=== PATIENT | female | born 1940 | race Two or more races ===

== ENCOUNTER 2017-03-12 09:11 | Inpatient (IN) | payer MEDICARE, MEDICAID ==
[~2017-03-12] VITALS: Ht 161.3 cm; Wt 77.7 kg
[2017-03-12 09:40] VITALS: BP 122/74
[2017-03-12] MEDS ORDERED: SIMV40TA3 PO (10:45)
[2017-03-12] MEDS ORDERED: POTA10CA PO (10:45)
[2017-03-12] MEDS ORDERED: LORA1TAB PO (10:45)
[2017-03-12] MEDS ORDERED: METO-93 PO (10:45)
[2017-03-12] MEDS ORDERED: DILT180C PO (10:45)
[2017-03-12] MEDS ORDERED: ANAS1TAB PO (10:45)
[2017-03-12] MEDS ORDERED: ASPI-650 PO (10:45)
[2017-03-12] MEDS ORDERED: TEMA30CA6 PO (10:45)
[2017-03-12] MEDS ORDERED: SODIUM CHLORIDE 0.9% 1,000 ML IV SCH ×2 (11:08→12:32)
[2017-03-12] MEDS ORDERED: TICAGRELOR 90 MG TABLET ONE (11:12)
[2017-03-12] MEDS ORDERED: FENTANYL PF 100 MCG/2ML ONE (11:12)
[2017-03-12] MEDS ORDERED: NITROGLYCERIN 5 MG/ML, 10ML ONE (11:12)
[2017-03-12] MEDS ORDERED: MIDAZOLAM 1 MG/ML, 5ML ONE (11:12)
[2017-03-12] MEDS ORDERED: VERAPAMIL 2.5 MG/ML, 2ML ONE (11:12)
[2017-03-12] MEDS ORDERED: BIVALIRUDIN 250 MG ONE (11:13)
[2017-03-12] MEDS ORDERED: HEPARIN 1,000 UNITS/ML, 10ML ONE (11:13)
[2017-03-12] MEDS ORDERED: LIDOCAINE 2%, 20ML ONE (11:13)
[2017-03-12] MEDS ORDERED: TEMAZEPAM 30 MG CAPSULE PO PRN (11:30)
[2017-03-12] MEDS: LORazepam 1MG TABLET PO SCH ×3 (11:30→20:50)
[2017-03-12] MEDS: ASPIRIN 325 MG TABLET EC PO SCH (11:30)
[2017-03-12 13:52] LABS: HEMATOCRIT 39.1 % (34.6-47.8); HEMOGLOBIN 13.2 g/dL (11.7-16.4); WHITE BLOOD COUNT 8.9 x10^3/uL (3.4-10)
[2017-03-12 14:02] LABS: ASPARTATE AMINO TRANSFERASE 27 U/L (15-37); BLOOD UREA NITROGEN 10 mg/dL (7-18)
[2017-03-12 14:13] VITALS: BP 110/71
[2017-03-12] MEDS: POTASSIUM CHLORIDE 10 MEQ TABLET.ER PO SCH (16:24)
[2017-03-12] MEDS: DILTIAZEM CD 180 MG CAP.ER.24H PO SCH (16:24)
[2017-03-12] MEDS: ANASTROZOLE 1 MG TABLET PO SCH (16:27)
[2017-03-12 19:33] VITALS: BP 150/80
[2017-03-12] MEDS ORDERED: SIMVASTATIN 40 MG TABLET PO SCH (21:00)
[2017-03-13 02:51] VITALS: BP 107/65
[2017-03-13] MEDS: LORazepam 1MG TABLET PO SCH ×2 (05:45→10:58)
[2017-03-13] MEDS ORDERED: METOPROLOL SUCCINATE 50 MG TAB.ER.24H PO SCH (06:00)
[2017-03-13 06:38] VITALS: BP 117/66
[2017-03-13] MEDS: POTASSIUM CHLORIDE 10 MEQ TABLET.ER PO SCH (08:50)
[2017-03-13] MEDS: ASPIRIN 325 MG TABLET EC PO SCH (08:50)
[2017-03-13] MEDS: ANASTROZOLE 1 MG TABLET PO SCH (08:50)
[2017-03-13] MEDS: DILTIAZEM CD 180 MG CAP.ER.24H PO SCH (08:52)
== END 2017-03-13 14:02 | disposition home or self-care (01) | DRG 287 ==
LOC: 5SO 09:37
PROVIDERS: ADMIT Internal Medicine Cardiovascular Disease; ATTEND Internal Medicine Cardiovascular Disease
PROC: 4A023N7 Measurement of Cardiac Sampling and Pressure, Left Heart, Percutaneous Approach (ICD-10-PCS; principal; 2017-03-12)
PROC: B215YZZ Fluoroscopy of Left Heart using Other Contrast (ICD-10-PCS; 2017-03-12)
PROC: B211YZZ Fluoroscopy of Multiple Coronary Arteries using Other Contrast (ICD-10-PCS; 2017-03-12)
PROC: 4B02XSZ Measurement of Cardiac Pacemaker, External Approach (ICD-10-PCS; 2017-03-12)
PROC: 4A033BC Measurement of Arterial Pressure, Coronary, Percutaneous Approach (ICD-10-PCS; 2017-03-12)
DX: I47.1 Supraventricular tachycardia (principal); E78.5 Hyperlipidemia, unspecified; R07.89 Other chest pain; I10 Essential (primary) hypertension; M54.30 Sciatica, unspecified side; Z85.3 Personal history of malignant neoplasm of breast; Z90.10 Acquired absence of unspecified breast and nipple; Z95.0 Presence of cardiac pacemaker; Z96.641 Presence of right artificial hip joint
CPT/HCPCS: 36415; 71020; 80053; 85025; 85610; 93306; 93458; 93571; 99156; 99157; C1769; C1894; J0583; J1644; J2250; J3010; J3490; J7030; Q9967